=== PATIENT | male | born 1965 | race African-American/Black ===

== ENCOUNTER 2019-01-30 12:59 | Emergency (ER) | payer SELFPAY ==
[~2019-01-30] VITALS: Ht 185.4 cm; Wt 100.7 kg
[2019-01-30 14:44] VITALS: BP 155/88
--- NOTE | 2019-01-30 15:01 | PHYS DOC ---
Past Medical History Past Medical History: Anxiety, Diabetes-Type II, High Cholesterol, Hypertension Additional Past Medical Histor: seasonal allergies, BPH Past Surgical History: No Surgical History, Other Additional Past Surgical Histo: cardiac cath Alcohol Use: Heavy Additional Information: 2-3 shots daily and 3-5 beers daily Drug Use: Marijuana Adult General Chief Complaint Chief Complaint: ANXIETY/PANIC ATTACK HPI HPI Patient is a 53 year old male patient with history of hypertension and anxiety and alcohol abuse who presents with ongoing of anxiety. Patient states he has had history of hypertension and ran out of his lisinopril and taking Lisinopril from his until he gets his medication via the mail. Patient states he checked his blood pressure today that was fine but his heart rate was 130 and he became anxious. Patient states he had episodes of anxiety week checking his blood pressure and having high blood pressure and was told to not check his blood often. Patient denies suicidal or homicidal ideation and hallucination and states he feels better at arrival to ER and had heart rate of 103 in triage. Review of Systems Review of Systems Constitutional: Denies fever or chills [] Eyes: Denies change in visual acuity, redness, or eye pain [] HENT: Denies nasal congestion or sore throat [] Respiratory: Denies cough or shortness of breath [] Cardiovascular: No additional information not addressed in HPI [] GI: Denies abdominal pain, nausea, vomiting, bloody stools or diarrhea [] : Denies dysuria or hematuria [] Musculoskeletal: Denies back pain or joint pain [] Integument: Denies rash or skin lesions [] Neurologic: Denies headache, focal weakness or sensory changes [] Endocrine: Denies polyuria or polydipsia [] All other systems were reviewed and found to be within normal limits, except as documented in this note. Allergies Allergies Allergies Coded Allergies Type Severity Reaction Last Updated Verified No Known Drug Allergies 04/23/15 No Physical Exam Physical Exam Constitutional: Well developed, well nourished, mild distress, non-toxic appearance. [] HENT: Normocephalic, atraumatic. Eyes: PERRLA, EOMI, conjunctiva normal, no discharge. [] Neck: Normal range of motion, no tenderness, supple, no stridor. [] Cardiovascular:Heart rate regular rhythm, no murmur [] Lungs & Thorax: Bilateral breath sounds clear to auscultation [] Abdomen: Bowel sounds normal, soft, no tenderness, no masses, no pulsatile masses. [] Skin: Warm, dry, no erythema, no rash. [] Back: No tenderness, no CVA tenderness. [] Extremities: No tenderness, no cyanosis, no clubbing, ROM intact, no edema. [] Neurologic: Alert and oriented X 3, no focal deficits noted. [] Psychologic: Affect normal, judgement normal, mood normal. [] Current Patient Data Vital Signs Vital Signs Date Time Temp Pulse Resp B/P (MAP) Pulse Ox O2 Delivery O2 Flow Rate FiO2 01/30/19 14:44 98.5 103 16 155/88 (110) 99 Room Air 98.5 EKG EKG EKG interpreted by me. EKG at 1428 showed sinus tachycardia at rate of 102, otherwise normal EKG. Radiology/Procedures Radiology/Procedures [] Course & Med Decision Making Course & Med Decision Making Evaluation of patient in ER showed 52-year-old male patient with history of alcohol abuse presented to ER with complaining of heart racing and panic attack after checking his blood pressure and finding it with elevation of heart rate. Patient had heart rate of 103 at arrival to ER that gradually decreased to 80s. Patient denies suicidal and homicidal ideation. Patient advised to continue with his primary care physician and take his blood pressure and anxiety medication. Dragon Disclaimer Dragon Disclaimer This electronic medical record was generated, in whole or in part, using a voice recognition dictation system. Departure Departure Impression: Primary Impression: Panic attack Disposition: HOME, SELF-CARE (at 1500) Condition: IMPROVED Referrals: NO PCP (PCP) Patient Instructions: Anxiety and Panic Attacks Additional Instructions: Drink plenty of liquids Follow-up with your primary care physician in 3-5 days Return to ER if not getting better Continue home medication STANLEY SIBLEY MD Jan 30, 2019 15:00
--- NOTE | 2019-01-31 08:22 | EKG ---
[facility] [address] [place] [address] Test Date: 2019-01-30 Test Time: 14:28:01 Pat Name: JOSTIN MORELOS Department: Room: Gender: [employer]ing [employer]ician: : 1965 Requested By: STANLEY SIBLEY Order Number: [id number] Reading MD: Measurements Intervals [place] Rate: 102 P: 43 MO: 160 QRS: 20 QRSD: 82 T: 28 QT: 310 QTc: 408 Interpretive Statements SINUS TACHYCARDIA OTHERWISE NORMAL ECG RI6.01 No previous ECG available for comparison
== END 2019-01-30 14:28 | disposition home or self-care (01) ==
LOC: ER 12:59
DX: F41.0 Panic disorder [episodic paroxysmal anxiety] (principal); E11.9 Type 2 diabetes mellitus without complications; E78.00 Pure hypercholesterolemia, unspecified; I10 Essential (primary) hypertension; F10.20 Alcohol dependence, uncomplicated; Y90.9 Presence of alcohol in blood, level not specified
CPT/HCPCS: 93005; 99284